=== PATIENT | female | born 1960 | race African-American/Black ===

== ENCOUNTER 2020-12-10 14:27 | Emergency (ER) | payer BC ==
[~2020-12-10] VITALS: Ht 157.5 cm; Wt 77.1 kg
[2020-12-10 14:28] VITALS: BP 79/52
--- NOTE | 2020-12-10 14:51 | NUR ---
PATIENT WHEELCHAIR ASSISTED TO BED 07
[2020-12-10] MEDS ORDERED: HYDR-637 PO (15:08)
[2020-12-10] MEDS ORDERED: LORazepam 1 MG TAB PO ONE (15:10)
[2020-12-10 15:38] VITALS: BP 152/77
--- NOTE | 2020-12-10 15:38 | NUR ---
Patient discharged with v/s stable. Written and verbal after care instructions given and explained. Patient alert, oriented and verbalized understanding of instructions. Ambulatory with steady gait. All questions addressed prior to discharge. ID band removed. Patient advised to follow up with PMD. Rx of Hydroxizine given. Patient educated on indication of medication including possible reaction and side effects. Opportunity to ask questions provided and answered.
== END 2020-12-10 15:30 | disposition home or self-care (01) ==
LOC: MED 14:27
DX: F41.9 Anxiety disorder, unspecified (principal); R06.02 Shortness of breath; R20.0 Anesthesia of skin; Z79.899 Other long term (current) drug therapy; Z91.040 Latex allergy status
CPT/HCPCS: 99283